=== PATIENT | male | born 1985 | race Caucasian/White ===

== ENCOUNTER 2017-06-02 03:01 | Emergency (ER) | payer BC, OTHER ==
[2017-06-02] MEDS ORDERED: ONDANSETRON 4 MG/2 ML VIAL IVP ONE (03:34)
[2017-06-02] MEDS ORDERED: NS 1,000 ML IV ONE (03:34)
[2017-06-02 03:45] LABS: PLATELET COUNT 245 10^3/uL (150-400)
[2017-06-02] MEDS ORDERED: KETOROLAC 30 MG/1 ML SDV ONE (04:17)
[2017-06-02] MEDS ORDERED: KETOROLAC 30 MG/1 ML SDV IM ONE (04:18)
--- NOTE | 2017-06-02 04:34 | EDPHY ---
H & P Stated Complaint: abd pain since 19005/31, nausea Time Seen by Provider: 06/02/17 04:20 HPI/ROS: HPI The patient presents with abdominal pain which has been present for the last 2 days which started slowly and has been fairly constant ever since. The pain is located in his mid abdomen and is described as an achy sensation. It has been associated with increased belching and gas. He has been able to eat without difficulty and food does not affect the pain. Over the last day, he noted the pain it is radiating toward his lower back bilaterally. He does not have any nausea or vomiting. He does not have any diarrhea, last bowel movement was tonight and was normal. He denies any cheek traumatic injuries recently.. REVIEW OF SYSTEMS Constitutional: No fever, no chills. Eyes: No discharge. ENT: No sore throat. Cardiovascular: No chest pain, no palpitations. Respiratory: No cough, no shortness of breath. Gastrointestinal: See HPI Genitourinary: No hematuria. Musculoskeletal: No back pain. Skin: No rashes. Neurological: No headache. 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 General Appearance: Alert, no distress Eyes: Pupils equal and round no pallor or injection ENT, Mouth: Mucous membranes moist Respiratory: There are no retractions, lungs are clear to auscultation Cardiovascular: Regular rate and rhythm Gastrointestinal: Abdomen is soft and non-tender, no masses, bowel sounds normal, no CVA tenderness Neurological: A&O, moves all extremities Skin: Warm and dry, no rashes Musculoskeletal: Neck is supple non tender Extremities: symmetrical, full range of motion Psychiatric: Patient is oriented X 3, there is no agitation Source: Patient Exam Limitations: No limitations - Personal History Current Tetanus/Diphtheria Vaccine: Yes Tetanus Vaccine Date: <5years ago - Medical/Surgical History Hx Asthma: No Hx Chronic Respiratory Disease: No Hx Diabetes: No Hx Cardiac Disease: No Hx Renal Disease: No Hx Cirrhosis: No Hx Alcoholism: No Hx HIV/AIDS: No Hx Splenectomy or Spleen Trauma: No Other PMH: PMHx: ADHD. PSHx: hernia repair - Social History Smoking Status: Never smoked Constitutional: Initial Vital Signs Temperature (C) 36.3 C 06/02/17 03:03 Heart Rate 48 L 06/02/17 03:03 Respiratory Rate 18 06/02/17 03:03 Blood Pressure 118/80 06/02/17 03:03 O2 Sat (%) 100 06/02/17 03:03 O2 Delivery Mode Room Air O2 (L/minute) 2 Allergies/Adverse Reactions: No Known Allergies Allergy (Unverified 07/20/15 22:01) Home Medications: Medication Instructions Recorded Adderall Xr 20 mg Capsule 07/20/15 Medical Decision Making Procedures: Bedside limited abdominal right upper quadrant Ultrasound- performed and interpreted by me. Indication: Right upper quadrant pain Findings: No gallstones visualized, no pericholecystic fluid, no gallbladder wall thickening, normal CBD diameter Impression: No sonographic evidence of cholecystitis or cholelithiasis. Differential Diagnosis: This is a 31-year-old male who presents with 2 days of achy abdominal pain which is in his mid abdomen. There are no associated symptoms. His symptoms have been fairly constant. On exam, he has no tenderness in the epigastrium or anywhere in the abdomen. Differential diagnosis includes constipation, early appendicitis, pancreatitis, cholelithiasis, gastroenteritis, gastritis. In the emergency department, patient was given IV fluids, Zofran, Toradol for his symptoms. He had ongoing pain and thus was given a dose of opiates., this improved his symptoms. Labs were checked and were relatively unremarkable except for elevated lipase. On re-examination, patient's pain continued to be improved. He does say that he occasionally drinks alcohol, though denies any recent binge drinking. He is not taking any new medications and has no history of gallstones. I performed a bedside right upper quadrant ultrasound was unremarkable for any gallstones. The cause of his pancreatitis is not clear at this time, however he feels well enough to go home and continues to have a benign abdominal exam. I have described to him a clear liquid diet I would like him to follow up for the next few days and then advance to a bland diet for pancreatitis. I have given him follow-up information for Gastroenterology if he would like. He will be discharged from the emergency department in good condition. - Data Points Laboratory Results: Laboratory Results 06/02/17 03:30 06/02/17 03:30 Medications Given: Discontinued Medications Fentanyl (Sublimaze) 50 mcg IVP EDNOW ONE Stop: 06/02/17 04:43 Last Admin: 06/02/17 04:44 Dose: 50 mcg Sodium Chloride (Ns) 1,000 mls @ 0 mls/hr IV EDNOW ONE; Wide Open PRN Reason: Protocol Stop: 06/02/17 03:35 Last Admin: 06/02/17 03:39 Dose: 1,000 mls Ketorolac Tromethamine (Toradol) 30 mg IM EDNOW ONE Stop: 06/02/17 04:19 Last Admin: 06/02/17 04:20 Dose: 30 mg Ondansetron HCl (Zofran) 4 mg IVP EDNOW ONE Stop: 06/02/17 03:35 Last Admin: 06/02/17 03:40 Dose: 4 mg Departure - Departure Disposition: Home, Routine, Self-Care Clinical Impression: Pancreatitis, acute Condition: Good Instructions: Pancreatitis (ED), Clear Liquid Diet (ED) Additional Instructions: Your lab tests today show that you most likely have pancreatitis. Because of this I would like for you to maintain a clear liquid diet until your feeling better. After that you can try bland foods such as crackers or rice. When you are feeling better then you can eat a regular diet. You can take ibuprofen 400 mg and acetaminophen 650 mg every 6 hours as needed for pain. I have given you information for referral for Gastroenterology in you can call the office to make an appointment for follow-up. You should return to the emergency department if your worse in any way. Referrals: JAI MCCLENDON [Other] - As per Instructions Satya Engel MD, FACG [Medical Doctor] - As per Instructions
[2017-06-02] MEDS ORDERED: fentaNYL 100 MCG/2 ML INJ IVP ONE (04:42)
[2017-06-02 05:19] VITALS: RESP 16
[2017-06-02 06:25] VITALS: BP 119/74; PULSE 48; TEMP 97.9; O2SAT 97
== END 2017-06-02 06:22 | disposition home or self-care (01) ==
DX: K85.90 Acute pancreatitis without necrosis or infection, unspecified (principal); E86.9 Volume depletion, unspecified
CPT/HCPCS: 96374; J1885; J2405; J3010